=== PATIENT | male | born 1990 | race Caucasian/White ===

== ENCOUNTER 2019-10-07 07:29 | Emergency (ER) | payer MEDICAID ==
[~2019-10-07] VITALS: Ht 182.9 cm; Wt 99.8 kg
[2019-10-07 07:34] VITALS: BP_SYST 134
--- NOTE | 2019-10-07 07:45 | NUR ---
Patient to ER bed 07 to gown for evaluation. Side rails up.
--- NOTE | 2019-10-07 07:47 | NUR ---
Patient arrived in the ED c/o shortness of breath and allergic reaction to sesame seeds that started 2 days ago - Taking Benadryl at home. Denied any chest pain or difficulty swallowing. Patient is alert and oriented x4, respirations even and unlabored, speaking in full sentences, and ambulating with a steady gait. VSS, pain level 0/10. Informed of approximate wait time. Sister at bedside. Instructed to notify ED staff for any changes in condition or worsening of symptoms. Patient verbalized understanding.
--- NOTE | 2019-10-07 07:54 | NUR ---
ER Dr. Dubois at bedside examining patient.
[2019-10-07] MEDS ORDERED: DIPHENHYDRAMINE INJ 50 MG/ML VIAL IM ONE (08:00)
[2019-10-07] MEDS ORDERED: methylPREDNISolone SOD SUCC/PF 62.5 MG/ML VIAL IM ONE (08:00)
--- NOTE | 2019-10-07 08:04 | NUR ---
Administered Benadryl and Solumedrol IM as ordered by Dr. Dubois. Patient tolerated the medications well. See eMAR for details.
--- NOTE | 2019-10-07 08:49 | NUR ---
X-ray tech at bedside doing a chest x-ray. Patient tolerated the procedure well.
--- NOTE | 2019-10-07 09:35 | NUR ---
Patient given written and verbal discharge instructions and verbalizes understanding. ER MD discussed with patient the results and treatment provided. Patient in stable condition. ID arm band removed. Rx of bENADRYL AND pREDNISONE given. Patient educated on pain management and to follow up with PMD. Pain Scale 0/10. Opportunity for questions provided and answered. Medication side effect fact sheet provided.
[2019-10-07 09:37] VITALS: BP_SYST 134
== END 2019-10-08 09:37 | disposition home or self-care (01) ==
LOC: SED 07:29
DX: T78.40XA Allergy, unspecified, initial encounter (principal); Z88.6 Allergy status to analgesic agent; X58.XXXA Exposure to other specified factors, initial encounter
CPT/HCPCS: 71045; 96372; 99283; J1200; J2930

== ENCOUNTER 2019-11-02 22:53 | Emergency (ER) | payer MEDICAID | END 2019-11-03 01:10 | disposition left against medical advice (07) | LOC: SED 22:53 | DX: R10.9 Unspecified abdominal pain (principal); Z53.21 Procedure and treatment not carried out due to patient leaving prior to being seen by health care provider ==

== ENCOUNTER 2023-01-14 22:18 | Emergency (ER) | payer MEDICAID ==
[~2023-01-14] VITALS: Ht 182.9 cm; Wt 127.0 kg
[2023-01-14 22:45] VITALS: BP_SYST 128
--- NOTE | 2023-01-14 22:46 | NUR ---
Patient triaged and placed in waiting room. VSS and patient appears in no acute distress at this time. Accompanied by , awaiting available bed, and MD notified of need for MSE. Patient A&O X4 and ambulates with a steady gait.
[2023-01-14 23:22] LABS: BASOPHILS % (AUTO) 0.5 % (0.0-2.0); EOSINOPHILS # (AUTO) 0.2 K/uL (0.0-0.4); EOSINOPHILS % (AUTO) 2.2 % (0.0-4.0); HEMATOCRIT 42.7 % (36-54); HEMOGLOBIN 14.6 g/dL (14.0-18.0); LYMPHOCYTES # (AUTO) 1.1 K/uL (1.0-5.5); LYMPHOCYTES % (AUTO) 14.9 % (20.5-51.5); MEAN CORPUSCULAR HEMOGLOBIN 28 pg (27-31); MEAN CORPUSCULAR HGB CONC 34 % (32-36); MEAN CORPUSCULAR VOLUME 83 fL (79.0-98.0); MONOCYTES # (AUTO) 0.7 K/uL (0.0-1.0); MONOCYTES % (AUTO) 9.1 % (1.7-9.3); NEUTROPHILS # (AUTO) 5.3 K/uL (1.8-7.7); NEUTROPHILS % (AUTO) 73.3 % (40.0-70.0); PLATELET COUNT (AUTO) 392 K/uL (130-430); RED BLOOD CELL COUNT(AUTO) 5.18 MIL/uL (4.2-6.2); RED CELL DISTRIBUTION WIDTH 13.3 % (9.0-15.0); WHITE BLOOD COUNT (AUTO) 7.3 K/uL (4.8-10.8)
[2023-01-14 23:39] LABS: ALBUMIN 3.9 g/dL (3.4-4.8); CALCIUM 9.1 mg/dL (8.4-11.0); CREATININE 0.8 mg/dL (0.55-1.30); TOTAL BILIRUBIN 0.3 mg/dL (0.0-1.0)
--- NOTE | 2023-01-15 00:50 | NUR ---
Patient to ER bed 03 to gown for evaluation. Side rails up. Report given to VENKATESH ROWLAND.
--- NOTE | 2023-01-15 01:28 | NUR ---
DR. MILLER AT BEDSIDE WITH PATIENT FOR MSE.
[2023-01-15] MEDS ORDERED: ACETAMINOPHEN 500 MG TABLET PO ONE (01:45)
[2023-01-15] MEDS ORDERED: NACL 0.9% 1,000 ML IV ONE (01:45)
[2023-01-15] MEDS ORDERED: AMPICILLIN SODIUM/SULBACTAM NA 3 GM VIAL ONE (01:45)
[2023-01-15] MEDS ORDERED: AMPICILLIN SODIUM/SULBACTAM NA 3 GM in NS 100 ML IV ONE (01:45)
--- NOTE | 2023-01-15 02:00 | NUR ---
IV START AT LT HAND IVF RUNNING DUE IV ANTIBIOTIC AND TYLENOL PO GIVEN.
--- NOTE | 2023-01-15 03:00 | NUR ---
LAB CALLED FOR CRITICAL LAB RESULTS PT POSITIVE FOR INFLUENZA B ALEXANDER MENG AWARE.
[2023-01-15] MEDS ORDERED: ACET12.55 PO (04:03)
[2023-01-15] MEDS ORDERED: AUG875 PO (04:03)
[2023-01-15 04:48] VITALS: BP_SYST 144
--- NOTE | 2023-01-15 04:50 | NUR ---
Patient given written and verbal discharge instructions and verbalizes understanding. SOPHIA MUNOZ MD discussed with patient the results and treatment provided. Patient in stable condition. ID arm band removed. IV catheter removed intact and dressing applied, no active bleeding. Rx of given. Patient educated on pain management and to follow up with PMD. Pain Scale 0 . Opportunity for questions provided and answered. Medication side effect fact sheet provided.
== END 2023-01-15 04:48 | disposition home or self-care (01) ==
LOC: SED 22:18
DX: K04.7 Periapical abscess without sinus (principal); J10.1 Influenza due to other identified influenza virus with other respiratory manifestations; R50.9 Fever, unspecified; R05.9 Cough, unspecified; M79.10 Myalgia, unspecified site; Z88.6 Allergy status to analgesic agent; Z79.899 Other long term (current) drug therapy; Z20.822 Contact with and (suspected) exposure to COVID-19
CPT/HCPCS: 99284; 87426; 80053; 85025; 87040; 36415; 83605; 87804 ×2; 96365; 71045; J0295

== ENCOUNTER 2023-08-16 20:02 | Emergency (ER) | payer MEDICAID ==
[~2023-08-16] VITALS: Ht 182.9 cm; Wt 127.0 kg
[~2023-08-16 20:02] MED LIST: ACET12.55 PO; AUG875 PO
[2023-08-16 20:24] VITALS: BP_SYST 121; PULSE 100; RESP 20; TEMP 98; O2SAT 96
[2023-08-16] MEDS ORDERED: NABU-140 PO (21:11)
== END 2023-08-16 22:00 | disposition home or self-care (01) ==
LOC: SED 20:02
DX: Z76.0 Encounter for issue of repeat prescription (principal); Z88.6 Allergy status to analgesic agent; Z79.899 Other long term (current) drug therapy
CPT/HCPCS: 99283